=== PATIENT | female | born 1940 | race Caucasian/White ===

== ENCOUNTER 2016-10-25 11:35 | Outpatient (CLI) ==
[2016-07-29 11:02] VITALS: BMI 24.2
[2016-10-25 12:06] LABS: BASOPHILS % (AUTO) 0.5 % (0.0-3.0); EOSINOPHILS # (AUTO) 0.2 K/ul (0.0-0.7); HEMATOCRIT 45.7 % (37.0-47.0); HEMOGLOBIN 15.1 g/dl (12.0-16.0); IMMATURE GRANULOCYTE % (AUTO) 0.2 % (0.0-5.0); LYMPHOCYTES # (AUTO) 2.3 K/uL (0.60-3.4); LYMPHOCYTES % (AUTO) 37.7 (10.0-50.0); MEAN CORPUSCULAR HEMOGLOBIN 31.2 pg (27.0-31.0); MEAN CORPUSCULAR VOLUME 94.4 fl (81.0-99.0); MONOCYTES # (AUTO) 0.4 K/uL (0.4-2.0); MONOCYTES % (AUTO) 6.4 (0-10); NEUTROPHILS # (AUTO) 3.1 K/ul (2.0-6.9); NEUTROPHILS % (AUTO) 51.2; PLATELET COUNT 160 10^3/uL (140-440); RED BLOOD COUNT 4.84 10^6/ul (4.20-5.40); WHITE BLOOD COUNT 6.07 K/ul (4.6-10.2)
[2016-10-25 12:50] LABS: ALBUMIN 3.8 g/dL (3.4-5.0); ALBUMIN/GLOBULIN RATIO 1.15; ANION GAP 14.2; BILIRUBIN,TOTAL 0.61 mg/dL (0.00-1.20); BUN/CREATININE RATIO 10.98; CALCIUM 9.6 mg/dL (8.2-10.2); CHOL/HDL RATIO 5.2 (4.5-5.5); CREATININE 0.91 mg/dL (0.60-1.30); POTASSIUM 4.2 mmol/L (3.5-5.10); TOTAL PROTEIN 7.1 g/dL (5.8-8.1)
== END 2016-10-25 11:36 | disposition home or self-care (01) ==
LOC: LAB 11:35
PROVIDERS: ATTEND Internal Medicine
DX: I10 Essential (primary) hypertension (principal); E78.5 Hyperlipidemia, unspecified; J44.9 Chronic obstructive pulmonary disease, unspecified; E53.8 Deficiency of other specified B group vitamins; I25.10 Atherosclerotic heart disease of native coronary artery without angina pectoris
CPT/HCPCS: 36415; 80053; 80061; 84443; 85025

== ENCOUNTER 2016-12-26 16:05 | Outpatient (CLI) ==
[2016-07-29 11:02] VITALS: BMI 24.2
--- NOTE | 2016-12-26 16:28 | DI ---
EXAM: Radiographs, left foot HISTORY: Left foot pain. COMPARISON: 08/23/2010. TECHNIQUE: Three views. FINDINGS: Bone mineralization is decreased. Bone island noted in the first distal phalanx. There is no fracture or dislocation. Osteoarthritic changes of the calcaneocuboid joint noted. Previousl y noted. Possible navicular fracture not seen currently. No focal soft tissue abnormality is seen. IMPRESSION: 1. No fracture or dislocation. 2. Calcaneocuboid osteoarthritis.
== END 2016-12-26 16:06 | disposition home or self-care (01) ==
LOC: RAD 16:05
PROVIDERS: ATTEND Internal Medicine
DX: M79.672 Pain in left foot (principal)

== ENCOUNTER 2017-06-20 11:25 | Emergency (ER) | payer OTHER ==
[2017-06-20 11:25] VITALS: BMI 24.2
[2017-06-20 11:35] VITALS: BP 133/64; TEMP 97.2
--- NOTE | 2017-06-20 12:53 | DI ---
EXAM: Three views of the left ankle. History: Left ankle trauma. Findings: No acute fracture or dislocation. No abnormal calcifications or radiopaque foreign bodies . Joint spaces are preserved. Benign appearing osseous lucency within the distal fibula. Impression: No acute osseous abnormality.
--- NOTE | 2017-06-20 12:59 | DI ---
EXAM: LEFT FOOT, 3 VIEWS HISTORY: Foot trauma, pain FINDINGS: Compared to 12/26/2016. No fracture or dislocation is identified. Region of interest was not conveyed. No joint effusion or soft tissue finding. IMPRESSION: No fracture or dislocation identified.
--- NOTE | 2017-06-20 13:11 | US ---
EXAM: Left lower extremity venous doppler. HISTORY: Left leg pain and swelling. COMPARISON: 07/29/2016. TECHNIQUE: Multiple grayscale and color doppler images were obtained. FINDINGS: There is normal flow, compressibility and augmentation of flow within the left common femo ral, greater saphenous, profunda, femoral, popliteal, posterior tibial, anterior tibial and peroneal veins. IMPRESSION: No evidence for left lower extremity deep vein thrombosis at the levels examined.
--- NOTE | 2017-06-20 13:13 | ED.PDOC ---
General ED Provider: Dr. MATTIE RECIO Chief Complaint: Foot Pain/Injury Stated Complaint: foot pain left Time Seen by Physician: 11:29 Information Source: Patient Exam Limitations: No limitations Primary Care Provider: BETSY ESPINO Nursing and Triage Documentation Reviewed and Agree: Yes Musculoskeletal Complaint Exam - Ankle/Foot Complaint/Exam Location of Injury: Reports: Left, Ankle, Foot Mechanism of Injury: Reports: Trauma Onset/Duration: 9 days ago had a fall denied other injury Symptoms Are: Reports: Still present Onset of Pain: Reports: Days Initial Severity: Moderate Current Severity: Moderate Location: Reports: Discrete Character: Reports: Aching Alleviating: Reports: Rest, Position Aggravating: Reports: Movement, Weight bearing, Prolonged standing Able to Bear Weight: Yes Associated Signs and Symptoms: Reports: Swelling, Redness, Bruising. Denies: Fever, Weakness, Numbness, Tingling Gout Risk Factors: Reports: >40 years old Related Surgical History: Reports: None Lower Extremity Findings: Present: Tenderness Tenderness: Present: Lateral malleolus Limited Range of Motion: Present: Inversion, Eversion Differential Diagnosis: Closed Fracture, Sprain, Strain Review of Systems - Review Of Systems Constitutional: Reports: No symptoms Eyes: Reports: No symptoms Ears, Nose, Mouth, Throat: Reports: No symptoms Respiratory: Reports: No symptoms Cardiac: Reports: No symptoms GI: Reports: No symptoms : Reports: No symptoms Musculoskeletal: Reports: Joint pain (ankle lillie left) Skin: Reports: No symptoms Neurological: Reports: No symptoms Endocrine: Reports: No symptoms Hematologic/Lymphatic: Reports: No symptoms All Other Systems: Reviewed and Negative Past Medical History - Past Medical History Previously Healthy: No Endocrine: Reports: None Cardiovascular: Reports: Hypertension Respiratory: Reports: None Hematological: Reports: None Gastrointestinal: Reports: None Genitourinary: Reports: None Neuro/Psych: Reports: None Musculoskeletal: Reports: None Cancer: Reports: None Last Menstrual Period: unknown - Surgical History General Surgical History: Reports: Unknown - Family History Family History: Reports: Unknown - Social History Smoking Status: Never smoker Hx Substance Use: No Alcohol Screening: None Physical Exam - Physical Exam Appearance: Well-appearing, No pain distress, Well-nourished Eyes: TOMAS, EOMI, Conjunctiva clear ENT: Ears normal, Nose normal, Oropharynx normal Respiratory: Airway patent, Breath sounds clear, Breath sounds equal, Respirations nonlabored Cardiovascular: RRR, Pulses normal, No rub, No murmur GI/: Soft, Nontender, No masses, Bowel sounds normal, No Organomegaly Musculoskeletal: Limited ROM (left ankle and foot , also the foot is brused calf tender on palpation the achilles tendon tender ) Skin: Warm, Dry, Normal color Neurological: Sensation intact, Motor intact, Reflexes intact, Cranial nerves intact, Alert, Oriented Psychiatric: Affect appropriate, Mood appropriate Interpretation - Radiology Interpretation Radiology Interpretation By: Radiologist Radiology Results: No acute changes Critical Care Note - Critical Care Note Total Time (mins): 0 Course - Course Orders, Labs, Meds: Orders Category Date Time Status ANKLE, LEFT MIN 3 VIEWS Stat RADS 06/20/17 11:54 Completed FOOT, LEFT 3 VIEWS Stat RADS 06/20/17 11:54 Completed U/S VENOUS SCAN LT. LEG Stat RADS 06/20/17 11:55 Ordered Vital Signs: Temp Pulse Resp BP Pulse Ox 06/20/17 11:26 97.2 F L 54 L 20 133/64 96 Departure - Departure Time of Disposition: 13:14 (ACHILLES TENDONE INJURY DISCUSSED HAS WALKER AT HOME MRI DISCUSSED MÓNICA SHULTZ AT BEDSIDE ) Disposition: HOME SELF-CARE Discharge Problem: Strain of left ankle and foot Qualifiers: Encounter type: initial encounter Qualified Code(s): S96.912A - Strain of unspecified muscle and tendon at ankle and foot level, left foot, initial encounter Instructions: Achilles Tendon Rupture (ED) Condition: Good Pt referred to PMD for follow-up: Yes Additional Instructions: Please call your Family Physician as soon as possible to schedule a follow-up appointment.you need an MRI WE DISCUSSED PLEASE SEE PMD Allergies/Adverse Reactions: Allergies prochlorperazine [From Compazine] Allergy (Verified 06/20/17 11:33) prochlorperazine edisylate [From Compazine] Allergy (Verified 06/20/17 11:33) prochlorperazine maleate [From Compazine] Allergy (Verified 06/20/17 11:33) Sulfa (Sulfonamide Antibiotics) Allergy (Verified 06/20/17 11:33) Home Medications: Ambulatory Orders Citalopram Hydrobromide [Celexa] 40 mg PO DAILY 04/25/16 Ezetimibe [Zetia] 10 mg PO DAILY 07/21/16 Lisinopril/Hydrochlorothiazide [Lisinopril-Hctz 10-12.5 Mg Tab] 1 each PO DAILY 04/25/16 Metoprolol Succinate [Toprol Xl] 50 mg PO DAILY 04/25/16 Diazepam [Valium] 5 mg PO BEDTIME 07/29/16 Acetaminophen with Codeine [Tylenol with Codeine #4 Tablet] 1 each PO BID PRN Disposition Discussed With: Patient
== END 2017-06-20 13:26 | disposition home or self-care (01) ==
LOC: ED 11:25
DX: S96.912A Strain of unspecified muscle and tendon at ankle and foot level, left foot, initial encounter (principal); M79.672 Pain in left foot; W19.XXXA Unspecified fall, initial encounter
CPT/HCPCS: 99282

== ENCOUNTER 2017-06-24 13:45 | Outpatient (CLI) | payer OTHER ==
--- NOTE | 2017-06-25 08:23 | MRI ---
EXAM: MRI of the left ankle/hind-foot without contrast COMPARISON: Left foot and ankle radiographs 06/20/2017. HISTORY: Left ankle pain, swelling bruising. Twisting injury 2 weeks ago. TECHNIQUE: Multiplanar noncontrast MR images of the left ankle/hind-foot were acquired using a 1.2 T esla magnet. FINDINGS: There is marrow edema throughout the distal tibia extending throughout the tibial plafond and most pronounced at the level the posterior malleolus. There is a vertically oriented nondisplace d fracture involving the posterior malleolus as seen on image 11 of the sagittal images abutting the subchondral plate without articular surface depression. Edema throughout the overlying soft tissues and adjacent portion of Kager's fat pad. Marrow edema extends into the medial malleolus without a def inite fracture at that site. Marrow edema within the anterior portion of the lateral malleolus extend ing along the attachment the anterior tibiofibular ligament with suspected flake avulsion fracture at that site. Marrow edema within the talus extending into the lateral process and along the margin of the subtalar joint sinus tarsi. There is a chronic-appearing fracture with secondary degenerative c hanges through the anterior process of the calcaneus with a 1.4 x 1.0 cm fracture fragment with secon odalys degenerative changes. Marrow edema throughout the proximal cuboid with question hairline acute fracture dorsally and extending along the margin of the articular surface of the calcaneocuboid artic ulation. Marked secondary degenerative changes at the calcaneocuboid articulation. There is marrow e dillan within the base of the first metatarsal laterally without a definite fracture. Partially imaged marrow edema within the second metatarsal shaft which may be related to stress reaction/evolving str ess fracture. Sprain of the Lisfranc ligament though intact ligament fibers are identified. The yair ar dome is intact. Tibiotalar and posterior subtalar joint effusions. Chronic deformity/spurring of the fifth metatarsal base along the attachment the peroneus brevis which may represent sequela of an old avulsion injury or enthesopathy. Minimal Achilles tendinosis peritendinitis without a tendon tear. 1 mm plantar calcaneal spur. Ther e is some edema throughout the subcutaneous tissues overlying the proximal portion the plantar fascia without fascial rupture. The anterior tibial, extensor hallicus longus and extensor digitorum tendons are intact. Posterior t ibial tendinosis with thinning flattening of the tendon from the medial malleolus through the navicul ar tuberosity related to a a partial tear with possible split component. Some residual intact fibers are identified without a complete/high-grade tear at this time. Flexor digitorum flexor hallicus lo ngus tendons are intact. Peroneus longus/brevis tendinosis with partial/split tear of the peroneus b alexandra from the lateral malleolus through the peroneal tubercle. There is a tear with scarring of the anterior tibiofibular ligament with suspected a avulsion fractur e at the fibular attachment. No abnormal widening of the syndesmosis. Intact posterior tibiofibular ligament fibers are identified. There is a low grade sprain that ligament. Sprain/partial tear inv olving the anterior talofibular and calcaneofibular ligaments as well as sprains with scarring of the posterior talofibular and deltoid ligaments. IMPRESSION: 1. Acute nondisplaced fracture of the posterior malleolus of the distal tibia as well as a small avu lsion fracture of the lateral malleolus. Chronic-appearing fracture with secondary degenerative villeda ge involving the anterior process of the calcaneus. Marrow contusion involving the talus, cuboid, di stal calcaneus and first metatarsal base with question of a small hairline nondisplaced fracture invo lving the proximal cuboid. Stress reaction versus evolving stress fracture involving the second meta tarsal shaft. Chronic deformity/spurring of the base of the fifth metatarsal. 2. Degenerative changes most severe at the calcaneocuboid articulation. Small joint effusions. 3. Subcutaneous edema. 4. Tendinosis and extensive partial tear of the posterior tibial tendon with some intact fibers iden tified. Posterior tibial tenosynovitis. 5. Peroneus longus/brevis tendinosis with partial/split tear of the peroneus brevis. 6. Tear of the anterior tibiofibular ligament with flake avulsion fracture of the fibular attachment . No abnormal widening of the syndesmosis. Sprain/partial tear of the anterior talofibular and calc aneofibular ligaments as well as sprains of the posterior talofibular and deltoid ligaments. 7. Sprain of the Lisfranc ligament with intact fibers identified.
== END 2017-06-24 13:46 | disposition home or self-care (01) ==
LOC: RAD 13:45
PROVIDERS: ATTEND Internal Medicine
DX: M25.572 Pain in left ankle and joints of left foot (principal)

== ENCOUNTER 2017-11-17 09:05 | Emergency (ER) | payer OTHER ==
[2017-11-17 09:06] VITALS: BMI 24.2
[2017-11-17 09:09] VITALS: BP 194/94; TEMP 97.4
--- NOTE | 2017-11-17 09:59 | DI ---
EXAM: CHEST FRONTAL AND LATERAL VIEWS HISTORY: Cough. COMPARISON: 03/16/2014 FINDINGS: Heart size is prominent. Sternotomy wires are noted. There is at least mild aortic ather osclerosis. No acute infiltrates are seen. No vascular congestion. There is no consolidation, visib le pleural fluid or pneumothorax. Bones reveal no acute fracture. IMPRESSION: No acute cardiopulmonary process.
--- NOTE | 2017-11-17 10:00 | CT ---
Exam: CT of the brain without intravenous contrast. Comparison: MRI of the brain performed 04/06/2013. Reason for exam: Dizzy FINDINGS: No acute intracranial hemorrhage, mass effect, ventricular dilatation, or territorial infa rction. The quadrigeminal and ambient cisterns are patent. There is no extraaxial fluid collection. The paranasal sinuses are unopacified without air-fluid levels. The calvarium appears intact. Impression: No acute intracranial findings. Report faxed at [id number] hours on 11/17/2017.
--- NOTE | 2017-11-17 10:36 | ED.PDOC ---
General ED Provider: Dr. MATTIE RECIO Chief Complaint: Nausea/Vomiting Stated Complaint: nausea, vomiting Time Seen by Physician: 09:00 (seen with nursing staff and ) Mode of Arrival: Wheelchair Information Source: Patient Exam Limitations: No limitations Primary Care Provider: BETSY ESPINO Nursing and Triage Documentation Reviewed and Agree: Yes (no motor sensory issues ) Reviewed sepsis parameters & appropriate labs ordered?: Yes (no focal signs) System Inflammatory Response Syndrome: Not Applicable Sepsis Protocol: For patient's 13 years and over: Temp is 96.8 and below OR 101 and greater Pulse >90 BPM Resp >20/minute Acutely Altered Mental Status Are patient's symptoms suggestive of a new infection, such as: -Pneumonia -Skin, Soft Tissue -Endocarditis -UTI -Bone, Joint Infection -Implantable Device -Acute Abdominal Infection -Wound Infection -Meningitis -Blood Stream Catheter Infection -Unknown System Inflammatory Response Syndrome: Not Applicable Neurological Complaint Exam - Dizziness Complaint/Exam Last Known Well: the morning presentation Onset: Gradual Duration: 1 hr Symptoms Are: Still present Timing: Intermittent Episodes Lasting: Minutes Initial Severity: Mild Current Severity: Mild Character: Reports: Lightheaded, Dizzy Aggravating: Reports: None Alleviating: Reports: None Associated Signs and Symptoms: Reports: Nausea, Vomiting (x1). Denies: Diaphoresis, Tinnitus, Chest pain, Short of air, Palpitations, Unsteady gait, GI blood loss, Visual changes, Decreased oral intake, Change in medication, Change in diet, OTC meds, Loss of balance Cardiac Risk Factors: Reports: Hypertension CVA Risk Factors: Reports: Hypertension Related Surgical History: Reports: None JVD Present: No Carotid Bruit Present: No Rectal Heme Positive: No Glascow Coma Scale (see protocol): 15 Nystagmus Present: No Gag Reflex Present: Yes Meningeal Signs Positive: No Focal Weakness: Present: None Focal Sensory Loss: Present: None Gait: Normal Differential Diagnoses: Hypovolemia, Metabolic abnormalities Quality Indicators for AMI: EKG in 10min. Quality Indicator For Non-Traumatic Chest Pain/Syncope: EKG Performed Review of Systems - Review Of Systems Constitutional: Reports: No symptoms Eyes: Reports: No symptoms Ears, Nose, Mouth, Throat: Reports: No symptoms Respiratory: Reports: No symptoms Cardiac: Reports: No symptoms GI: Reports: Nausea, Vomiting : Reports: No symptoms Musculoskeletal: Reports: No symptoms Skin: Reports: No symptoms Neurological: Reports: No symptoms Endocrine: Reports: No symptoms Hematologic/Lymphatic: Reports: No symptoms All Other Systems: Reviewed and Negative Past Medical History - Past Medical History Previously Healthy: No Endocrine: Reports: None Cardiovascular: Reports: Hypertension Respiratory: Reports: None Hematological: Reports: None Gastrointestinal: Reports: None Genitourinary: Reports: None Neuro/Psych: Reports: None Musculoskeletal: Reports: None Cancer: Reports: None Last Menstrual Period: n/a - Surgical History General Surgical History: Reports: Unknown - Family History Family History: Reports: Unknown - Social History Smoking Status: Never smoker Hx Substance Use: No Alcohol Screening: None Physical Exam - Physical Exam Appearance: Well-appearing, No pain distress, Well-nourished Eyes: TOMAS, EOMI, Conjunctiva clear ENT: Ears normal, Nose normal, Oropharynx normal Respiratory: Airway patent, Breath sounds clear, Breath sounds equal, Respirations nonlabored Cardiovascular: RRR, Pulses normal, No rub, No murmur GI/: Soft, Nontender, No masses, Bowel sounds normal, No Organomegaly Musculoskeletal: Normal strength, ROM intact, No edema, No calf tenderness Skin: Warm, Dry, Normal color Neurological: Sensation intact, Motor intact, Reflexes intact, Cranial nerves intact, Alert, Oriented Psychiatric: Affect appropriate, Mood appropriate Interpretation - Radiology Interpretation Radiology Interpretation By: Radiologist Radiology Results: No acute changes Exam Interpreted: CT Scan - Contract [employer] Specialist Rate: Malcolm Rhythm: Sinus - EKG Interpretation Rate: Malcolm Rhythm: Sinus Critical Care Note - Critical Care Note Total Time (mins): 0 Course - Course Hematology/Chemistry: 11/17/17 09:20 11/17/17 09:20 Orders, Labs, Meds: Lab Review 11/17/17 11/17/17 09:20 09:20 WBC 6.43 RBC 4.74 Hgb 14.9 Hct 43.0 MCV 90.7 MCH 31.4 H MCHC 34.7 RDW Coeff of Tori 12.3 Plt Count 168 Immature Gran % (Auto) 0.3 Neut % (Auto) 44.7 Lymph % (Auto) 44.3 Holt % (Auto) 7.0 Eos % (Auto) 3.1 Baso % (Auto) 0.6 Immature Gran # (Auto) 0.0 Neut # 2.9 Lymph # 2.9 Holt # 0.5 Eos # 0.2 Baso # 0.0 Sodium 137 Potassium 4.3 Chloride 101 Carbon Dioxide 27 Anion Gap 13.3 BUN 16 Creatinine 0.79 Estimated GFR (MDRD) 71.00 BUN/Creatinine Ratio 20.25 Glucose 103 Calcium 9.5 Total Bilirubin 0.7 AST 22 ALT 19 Alkaline Phosphatase 69 Total Creatine Kinase 54 Troponin I < 0.0100 Total Protein 6.9 Albumin 3.8 Globulin 3.1 Albumin/Globulin Ratio 1.23 Orders Category Date Time Status EKG-(ED ONLY) Stat CARDIO 11/17/17 09:17 Completed CBC W/ AUTO DIFF Stat LAB 11/17/17 09:20 Completed COMPREHENSIVE METABOLIC PANEL Stat LAB 11/17/17 09:20 Completed CREATINE KINASE Stat LAB 11/17/17 09:20 Completed TROPONIN I Stat LAB 11/17/17 09:20 Completed CHEST, 2 VIEWS PA & LAT Stat RADS 11/17/17 09:[address] HEAD W/O CONTRAST Stat RADS 11/17/17 09:18 Completed Vital Signs: Temp Pulse Resp BP Pulse Ox 11/17/17 09:06 97.4 F L 57 L 16 194/94 H 98 Departure - Departure Time of Disposition: 10:38 Disposition: HOME SELF-CARE Discharge Problem: Nausea, Vomiting, Weakness, Dizziness Instructions: Vertigo (ED), Dizziness (ED) Condition: Good Pt referred to PMD for follow-up: Yes IPMP verified?: No Additional Instructions: Please call your Family Physician as soon as possible to schedule a follow-up appointment. Allergies/Adverse Reactions: Allergies prochlorperazine [From Compazine] Allergy (Verified 11/17/17 09:09) prochlorperazine edisylate [From Compazine] Allergy (Verified 11/17/17 09:09) prochlorperazine maleate [From Compazine] Allergy (Verified 11/17/17 09:09) Sulfa (Sulfonamide Antibiotics) Allergy (Verified 11/17/17 09:09) Home Medications: Ambulatory Orders Citalopram Hydrobromide [Celexa] 40 mg PO DAILY 04/25/16 Ezetimibe [Zetia] 10 mg PO DAILY 04/25/16 Lisinopril/Hydrochlorothiazide [Lisinopril-Hctz 10-12.5 Mg Tab] 1 each PO DAILY 04/25/16 Metoprolol Succinate [Toprol Xl] 50 mg PO DAILY 04/25/16 Diazepam [Valium] 5 mg PO BEDTIME PRN 07/29/16 Acetaminophen with Codeine [Tylenol with Codeine #4 Tablet] 1 each PO BID PRN Nitroglycerin [Nitrostat] 0.4 mg SL Q5MIN X 3 DOSES PRN 11/17/17 Ondansetron HCl [Zofran] 4 mg PO PRN PRN 11/17/17
== END 2017-11-17 11:05 | disposition home or self-care (01) ==
LOC: ED 09:05
DX: R11.2 Nausea with vomiting, unspecified (principal); R53.1 Weakness; R42 Dizziness and giddiness; I10 Essential (primary) hypertension; Z79.899 Other long term (current) drug therapy
CPT/HCPCS: 36415; 80053; 82550; 84484; 85025; 93005; 93010; 99283

== ENCOUNTER 2018-03-11 06:43 | Outpatient (CLI) | payer OTHER ==
--- NOTE | 2018-03-11 10:01 | NM ---
EXAM: Myocardial perfusion imaging HISTORY: Chest pain COMPARISON: Myocardial perfusion imaging on 11/16/2012 was normal. TECHNIQUE: Patient was injected 3.76 mCi of thallium 201 chloride intravenously while at rest. SPECT imaging of the heart was acquired. Patient was subsequently stressed on a treadmill and at peak exe rcise injected 24.9 mCi of Tc99m Sestamibi intravenously. Another SPECT imaging of the heart was [facility]. Gated cardiac study was also performed. FINDINGS: Post stress images show normal left ventricular cavity size. Radioisotope distribution is homogeneous in the left ventricle myocardium. There is no evidence of exercise induced reversible is chemia. No fixed defect is visualized. The left ventricular ejection fraction is 80% and wall motio n is normal. IMPRESSION: 1. SPECT myocardial imaging at stress and rest is normal. 2. Normal cardiac systolic function and normal wall motion.
--- NOTE | 2018-03-12 09:58 | ECHO2D ---
Date of Exam: 03/11/18 Ordering Physician: DR. BETSY ESPINO Room #: OP Reason for Echo: CHEST PAIN, COPD, DYSLIPIDEMIA, CABG M-Mode Normal Adult Results LV Dimensions Normal Adult Results AoV Opening excursions >1.6 >1.6 LVEDD-base- 3.5-5.8 4.0 Ao root dimensions 2.0-3.7 3.1 LVESD-base- 3.1-4.6 L. Atrium dimensions 1.9-3.8 4.1 Post. Wall thickness 0.8-1.1 1.2 IV septum (thickness) 0.7-1.2 1.2 Post. Wall excursion 0.72-1.3 NORMAL Septal motion 0.5 Systolic motion R. Ventricular cavity 1.5-2.0 NORMAL LVEF 60% 51% Paradoxical septal wall motion NORMAL 2-D : MILDLY HYPOKINETIC SEPTUM--ENLARGED LEFT ATRIAL CAVITY, NORMAL VALVES, NORMAL LEFT VENTRICLE SIZE COLOR FLOW: SEVERE TRICUSPID REGURGITATION, MILD MITRAL REGURGITATION M-MODE: MV: NORMAL AV: NORMAL TV: NORMAL PV: CHAMBER SIZE: ENLARGED LEFT ATRIAL CAVITY WALL MOTION: HYPOKINETIC SEPTUM PERICARDIUM: NORMAL INTERPRETATION: 1. BORDERLINE LEFT VENTRICULAR HYPERTROPHY WITH ENLARGED LEFT ATRIAL CAVITY 2. HYPOKINETIC SEPTUM WITH EJECTION FRACTION 51% 3. SEVERE TRICUSPID REGURGITATION MTDD
--- NOTE | 2018-03-12 10:12 | STRESSMOD ---
Date of Test: 03/11/18 Ordering Physician: DR. BETSY ESPINO Occupation: RETIRED Reason for Exam: CHEST PAIN, COPD, DYSLIPIDEMIA, CABG 2013 Smoking History: NO Height: 66" Weight: 157 LBS Current Medications: TOPROL, LISINOPRIL-HCTZ, CELEXA, NITRO, VALIUM, ZETIA, AMLODIPINE, ANTIVERT Resting EKG: SINUS RHYTHM/ INCOMPLETE RIGHT BUNDLE BRANCH BLOCK Target Heart Rate: 123/145 S-T SEGMENT STAGE MPH/GRADE HEART RATE BPM BLOOD PRESSURE mmhg RHYTHM +/- ELEVATION DEPRESSION SYMPTOMS,COMMENTS At Rest 60 140/78 SR X NONE 1 1.7/0% 71 140/60 SR X NONE 2 1.7/5% 82 160/80 SR X NONE 3 1.7/10% 4 2.5/12% 5 3.4/14% Immediately After 92 180/80 SR X FATIGUE Minutes Post Exercise 4:00 62 140/80 SR X FATIGUE Minutes Post Exercise DURATION OF EXERCISE: 7:00 MAXIMUM HEART RATE REACHED: 92 REASON FOR TERMINATION: FATIGUE 98% OXYGEN SATURATION WITH EXERCISE ON ROOM AIR METS 4.6 INTERPRETATION: 1. NO EVIDENCE OF ISCHEMIA BY ST-T WAVE FROM HEART RATE 60 BPM TO 92 BPM 2. NO ARRHYTHMIAS 3. BLOOD PRESSURE RESPONSE: SYSTOLIC HYPERTENSION WITH EXERCISE (MILD) 4. NO CHEST PAIN OR DISCOMFORT HYPOKINETIC SEPTUM AT REST AND WITH IMPROVED MOTION POST EXERCISE --CARDIOLITE TO FOLLOW MTDD
--- NOTE | 2018-03-12 10:14 | ECHOSTRESS ---
Date of Exam: 03/11/18 Ordering Physician: DR. BETSY ESPINO Reason for Echo: COPD, CABG, DYSLIPIDEMIA, STRESS TEST--NO ISCHEMIA M-Mode Normal Adult Results LV Dimensions Normal Adult Results AoV Opening excursions >1.6 LVEDD-base- 3.5-5.8 Ao root dimensions 2.0-3.7 LVESD-base- 3.1-4.6 L. Atrium dimensions 1.9-3.8 Post. Wall thickness 0.8-1.1 IV septum (thickness) 0.7-1.2 Post. Wall excursion 0.72-1.3 Septal motion Systolic motion R. Ventricular cavity 1.5-2.0 LVEF 60% Paradoxical septal wall motion 2-D: HYPOKINETIC SEPTUM AT REST WITH IMPROVED SEPTAL MOTION POST EXERCISE M-MODE: MV: AV: TV: PV: CHAMBER SIZE: WALL MOTION: HYPOKINETIC SEPTUM AT REST WITH IMPROVED SEPTAL MOTION POST EXERCISE PERICARDIUM: INTERPRETATION: 1. HYPOKINETIC SEPTUM AT REST WITH IMPROVED SEPTAL MOTION POST EXERCISE SESTAMIBI/ CARDIOLITE TO FOLLOW MTDD
== END 2018-03-11 06:44 | disposition home or self-care (01) ==
LOC: CAR 06:43
PROVIDERS: ATTEND Internal Medicine
DX: R07.9 Chest pain, unspecified (principal); E78.5 Hyperlipidemia, unspecified; J44.9 Chronic obstructive pulmonary disease, unspecified; Z95.1 Presence of aortocoronary bypass graft

== ENCOUNTER 2019-01-23 11:13 | Emergency (ER) ==
[2019-01-23 11:18] VITALS: BMI 23.9
[2019-01-23] MEDS ORDERED: SODIUM CHLORIDE 1,000 ML IV STA (11:33)
--- NOTE | 2019-01-23 12:05 | CT ---
EXAM: CT Abdomen without contrast. CT Pelvis without contrast. HISTORY: Bloody stool. Rectal pain. COMPARISON: 03/22/2016. TECHNIQUE: Multiple axial images of the abdomen and pelvis were obtained without intravenous contras t. Images were reformatted in the sagittal and coronal plane. FINDINGS: Please note that evaluation of the abdominal and pelvic structures is limited due to lack of intravenous contrast. Bilateral breast implants are partially imaged. There has been previous sternotomy. The lung bases are clear. Degenerative changes present in the spine.. The liver, gallbladder, pancreas, spleen, adrenal glands, and right kidney demonstrate normal contour . Subtle partially exophytic lateral left renal cortical lesion measuring 1.2 x 1 x 1 cm on axial im age 50 and coronal image 62 with internal density of 30 HU, grossly stable in size from prior abdomin al CT. There is moderate wall thickening of the descending colon with adjacent pericolonic inflammation. Th ere is no pneumatosis. There is no evidence for bowel obstruction. The appendix is normal. Uterus is absent. Bladder is collapsed. Phleboliths present in the pelvis. Atherosclerotic calcifications present. No free fluid or free air is identified. IMPRESSION: 1. Descending colitis most likely due to infectious process or inflammatory bowel disease. 2. Stable small left renal cortical lesion, since 2017, indeterminate based on CT. Follow-up non-em ergent ultrasound recommended for further characterization.
[2019-01-23] MEDS ORDERED: UNASYN 3 GM in SODIUM CHLORIDE 100 ML IV STA (12:46)
[2019-01-23] MEDS ORDERED: SOLU-MEDROL 125 MG IVP STA (12:46)
[2019-01-23 12:59] VITALS: TEMP 98.5
--- NOTE | 2019-01-23 13:00 | ED.PDOC ---
General ED Provider: Dr. MATTIE RECIO Chief Complaint: Rectal Pain Stated Complaint: Rectal Bleeding ONSET 1 DAY AGO. RADHA BLOOD NOTED BY THE PT YESTERDAY BUT, SHE HAS NOT HAD ANY FURTHER RECTAL BLEEDING IN THE EMERGENCY DEPT OR SINCE YESTERDAY. PT'S MAIN ISSUE TODAY IS ABDOMINAL CRAMPING PAIN AND RECTAL BLEED 1 DAY PRIOR. Time Seen by Physician: 11:17 (ángel present at all times ) Mode of Arrival: Walk-In Information Source: Patient Exam Limitations: No limitations Primary Care Provider: BETSY ESPINO Nursing and Triage Documentation Reviewed and Agree: Yes Does patient meet sepsis criteria?: No System Inflammatory Response Syndrome: Not Applicable Sepsis Protocol: For patient's 13 years and over: Temp is 96.8 and below OR 101 and greater Pulse >90 BPM Resp >20/minute Acutely Altered Mental Status Are patient's symptoms suggestive of a new infection, such as: -Pneumonia -Skin, Soft Tissue -Endocarditis -UTI -Bone, Joint Infection -Implantable Device -Acute Abdominal Infection -Wound Infection -Meningitis -Blood Stream Catheter Infection -Unknown GI Complaint Exam - GI Bleed Complaint/Exam Patient Complains of: Reports: Rectal bleeding Onset/Duration: 1 day ago Symptoms Are: Resolved Episodes Lasting: Minutes Severity: Reports: Bright red blood-rectum Character: Reports: Cramping Aggravating: Reports: None Alleviating: Reports: None Associated Signs and Symptoms: Denies: Back Pain, Pallor, Dizziness, Weakness, Syncope, Constipation, Nausea, Rectal pain, Bruising, Weight loss, Recent abnormal coags GI Bleed Risk Factors: Reports: None Recent Colonoscopy: No Recent EGD: No Related Surgical History: Reports: None Abdominal Findings: Present: None Rectal Exam: Present: Other (gross blood present ángel) Differential Diagnoses: Diverticulitis, Enterocolitis, Hemorrhoids, Ischemic Bowel, Ulcerative Colitis, Crohn's Disease Review of Systems - Review Of Systems Constitutional: Reports: No symptoms Eyes: Reports: No symptoms Ears, Nose, Mouth, Throat: Reports: No symptoms Respiratory: Reports: No symptoms Cardiac: Reports: No symptoms GI: Reports: Abdominal pain, Rectal bleeding : Reports: No symptoms Musculoskeletal: Reports: No symptoms Skin: Reports: No symptoms Neurological: Reports: No symptoms Endocrine: Reports: No symptoms Hematologic/Lymphatic: Reports: No symptoms All Other Systems: Reviewed and Negative Past Medical History - Past Medical History Previously Healthy: No Endocrine: Reports: None Cardiovascular: Reports: Hypertension Respiratory: Reports: None Hematological: Reports: None Gastrointestinal: Reports: None Genitourinary: Reports: None Neuro/Psych: Reports: None Musculoskeletal: Reports: None Cancer: Reports: None Last Menstrual Period: N/A - Surgical History General Surgical History: Reports: Unknown - Family History Family History: Reports: Unknown - Social History Smoking Status: Never smoker Hx Substance Use: No Alcohol Screening: None - Immunizations Tetanus Shot up to Date: No Physical Exam - Physical Exam Appearance: Well-appearing, No pain distress, Well-nourished Eyes: TOMAS, EOMI, Conjunctiva clear ENT: Ears normal, Nose normal, Oropharynx normal Respiratory: Airway patent, Breath sounds clear, Breath sounds equal, Respirations nonlabored Cardiovascular: RRR, Pulses normal, No rub, No murmur GI/: Soft, Nontender, No masses, Bowel sounds normal, No Organomegaly Musculoskeletal: Normal strength, ROM intact, No edema, No calf tenderness Skin: Warm, Dry, Normal color Neurological: Sensation intact, Motor intact, Reflexes intact, Cranial nerves intact, Alert, Oriented Psychiatric: Affect appropriate, Mood appropriate Interpretation - Radiology Interpretation Radiology Interpretation By: Radiologist Radiology Results: Positive (COLITIS .VS INFECTIUS) - Hairspring Vibrator Rate: Malcolm Rhythm: Sinus - EKG Interpretation Rate: Malcolm Rhythm: Sinus Ectopy: None [place]: NL (T INVSERION V2,V3 ) Physician Notification - Case Discussed Physician Notified: SHOLA CHRISTIAN Time of Notification: 13:35 (TRANSFER ) Critical Care Note - Critical Care Note Total Time (mins): 0 Course - Course Hematology/Chemistry: 01/23/19 11:35 01/23/19 11:35 Orders, Labs, Meds: Lab Review 01/23/19 01/23/19 01/23/19 11:35 11:35 11:35 WBC 10.43 H RBC 4.89 Hgb 15.5 Hct 45.0 MCV 92.0 MCH 31.7 H MCHC 34.4 RDW Coeff of Tori 12.0 Plt Count 154 Immature Gran % (Auto) 0.2 Neut % (Auto) 77.9 Lymph % (Auto) 17.4 Wilkinson % (Auto) 4.1 Eos % (Auto) 0.2 Baso % (Auto) 0.2 Immature Gran # (Auto) 0.0 Neut # (Auto) 8.1 H Lymph # (Auto) 1.8 Wilkinson # (Auto) 0.4 Eos # (Auto) 0.0 Baso # (Auto) 0.0 PT 10.5 INR 1.05 APTT 23.5 L Puncture Site O2 Saturation ABG pH ABG pCO2 ABG pO2 ABG HCO3 ABG Total CO2 ABG Base Excess Torres Test FiO2 % Sodium 134.4 L Potassium 3.93 Chloride 100.8 Carbon Dioxide 24.6 Anion Gap 12.93 BUN 16.3 Creatinine 0.81 Estimated GFR (MDRD) 69.00 BUN/Creatinine Ratio 20.12 Glucose 143.0 H Calcium 9.31 Total Bilirubin 0.94 AST 29.5 ALT 23.4 Alkaline Phosphatase 75.7 Total Creatine Kinase 32.7 Troponin I < 0.012 Total Protein 6.97 Albumin 4.60 Globulin 2.37 Albumin/Globulin Ratio 1.94 Stl Occult Blood (IFOB) 01/23/19 01/23/19 11:35 13:01 WBC RBC Hgb Hct MCV MCH MCHC RDW Coeff of Tori Plt Count Immature Gran % (Auto) Neut % (Auto) Lymph % (Auto) Wilkinson % (Auto) Eos % (Auto) Baso % (Auto) Immature Gran # (Auto) Neut # (Auto) Lymph # (Auto) Wilkinson # (Auto) Eos # (Auto) Baso # (Auto) PT INR APTT Puncture Site Rr O2 Saturation 96.0 ABG pH 7.412 ABG pCO2 40.3 ABG pO2 83.0 L ABG HCO3 25.6 ABG Total CO2 27 ABG Base Excess 1 Torres Test + FiO2 % 21.0 Sodium Potassium Chloride Carbon Dioxide Anion Gap BUN Creatinine Estimated GFR (MDRD) BUN/Creatinine Ratio Glucose Calcium Total Bilirubin AST ALT Alkaline Phosphatase Total Creatine Kinase Troponin I Total Protein Albumin Globulin Albumin/Globulin Ratio Stl Occult Blood (IFOB) Positive Orders Category Date Time Status ABG DRAW REQUEST Stat CARDIO 01/23/19 13:02 Completed EKG-(ED ONLY) Stat CARDIO 01/23/19 11:25 Completed EKG-(ED ONLY) Stat CARDIO 01/23/19 13:02 Completed ED IV/MEDIPORT/POWERPORT .ONCE EMERGENCY 01/23/19 11:32 Active ABG Stat LAB 01/23/19 13:01 Completed CBC W/ AUTO DIFF Stat LAB 01/23/19 11:35 Completed COMPREHENSIVE METABOLIC PANEL Stat LAB 01/23/19 11:35 Completed CREATINE KINASE Stat LAB 01/23/19 11:35 Completed OCCULT BLOOD, STOOL Stat LAB 01/23/19 11:35 Completed PARTIAL THROMBOPLASTIN TIME Stat LAB 01/23/19 11:35 Completed PT WITH INR Stat LAB 01/23/19 11:35 Completed TROPONIN I Stat LAB 01/23/19 11:35 Completed 0.9 % Sodium Chloride [Saline Flush] MEDS 01/23/19 11:32 Ordered 1 syr IVF PRN PRN Ampicillin Sodium/Sulbactam Na [Unasyn] MEDS 01/23/19 13:04 Discontinued 3 gm .ROUTE .STK-MED ONE Ampicillin Sodium/Sulbactam Na [Unasyn] 3 gm MEDS 01/23/19 12:46 Active 0.9 % Sodium Chloride [Sodium Chloride] 100 ml IV ONCE Methylprednisolone Sod Succ/Pf [Solu-Medrol 125 mg] MEDS 01/23/19 12:46 Discontinued 125 mg IVP ONCE STA Sodium Chloride 0.9% [Sodium Chloride] 1,000 ml MEDS 01/23/19 11:33 Active IV 125 mls/hr CT ABDOMEN/PELVIS WO CONTRAST Stat RADS 01/23/19 11:25 Completed Medications Generic Name Dose Route Start Last Admin Trade Name Freq PRN Reason Stop Dose Admin Sodium Chloride 1,000 mls @ 125 mls/hr 01/23/19 11:33 01/23/19 11:54 Sodium Chloride IV 01/23/19 19:32 125 mls/hr .Q8H STA Administration Ampicillin Sodium/Sulbactam 100 mls @ 100 mls/hr 01/23/19 12:46 01/23/19 13: 16 Sodium 3 gm/ Sodium Chloride IV 01/23/19 13:45 100 mls/hr ONCE STA Administration Sodium Chloride 1 syr 01/23/19 11:32 Saline Flush IVF PRN PRN To flush IV Discontinued Medications Generic Name Dose Route Start Last Admin Trade Name Freq PRN Reason Stop Dose Admin Methylprednisolone Sodium Succinate 125 mg 01/23/19 12:46 01/23/19 13:15 Solu-Medrol 125 Mg IVP 01/23/19 12:47 125 mg ONCE STA Administration Vital Signs: Temp Pulse Resp BP Pulse Ox 01/23/19 13:10 172/68 H 01/23/19 12:58 98.5 F 56 L 18 179/74 H 97 01/23/19 11:14 99.2 F 62 18 172/83 H 95 Departure - Departure Time of Disposition: 13:35 (SPOKE TO [facility] [place] THE PT NO FURTHER G.I. BLEED PT TRANSFERED ) Disposition: TSF SHORT-TRM HOSP Discharge Problem: Lower GI bleed Instructions: Rectal Bleeding (ED) Condition: Good Pt referred to PMD for follow-up: Yes IPMP verified?: No Additional Instructions: Please call your Family Physician as soon as possible to schedule a follow-up appointment. Allergies/Adverse Reactions: Allergies prochlorperazine [From Compazine] Allergy (Verified 01/23/19 11:17) prochlorperazine edisylate [From Compazine] Allergy (Verified 01/23/19 11:17) prochlorperazine maleate [From Compazine] Allergy (Verified 01/23/19 11:17) Sulfa (Sulfonamide Antibiotics) Allergy (Verified 01/23/19 11:17) Home Medications: Ambulatory Orders Citalopram Hydrobromide [Celexa] 40 mg PO DAILY 04/25/16 Ezetimibe [Zetia] 10 mg PO DAILY 04/25/16 Lisinopril/Hydrochlorothiazide [Lisinopril-Hctz 10-12.5 Mg Tab] 1 each PO DAILY 04/25/16 Metoprolol Succinate [Toprol Xl] 50 mg PO DAILY 04/25/16 Diazepam [Valium] 5 mg PO BEDTIME PRN 07/29/16 Acetaminophen with Codeine [Tylenol with Codeine #4 Tablet] 1 each PO BID PRN Nitroglycerin [Nitrostat] 0.4 mg SL Q5MIN X 3 DOSES PRN 11/17/17 Aspirin [Aspir-Low] 81 mg PO DAILY 01/23/19
[2019-01-23] MEDS ORDERED: UNASYN ONE (13:04)
[2019-01-23 13:10] VITALS: BP 172/68
== END 2019-01-23 13:55 | disposition short-term general hospital (02) ==
LOC: ED 11:13
DX: K92.2 Gastrointestinal hemorrhage, unspecified (principal); I10 Essential (primary) hypertension; Z79.899 Other long term (current) drug therapy
CPT/HCPCS: 36415; 80053; 82272; 82550; 82803; 84484; 85025; 85610; 85730; 93005; 93010; 96361; 96365; 96375; 99285

== ENCOUNTER 2019-01-23 14:04 | Outpatient (CLI) ==
[2019-01-23 11:18] VITALS: BMI 23.9
== END 2019-01-23 14:27 | disposition short-term general hospital (02) ==
LOC: AMBL 14:04
PROVIDERS: ATTEND Internal Medicine
DX: R10.84 Generalized abdominal pain (principal); K92.1 Melena

== ENCOUNTER 2019-03-02 06:52 | Day surgery (SDC) ==
[2019-03-02 07:32] VITALS: TEMP 96.8
[2019-03-02] MEDS ORDERED: LIDOCAINE 1% 20 ML MDV ID STA (07:33)
[2019-03-02] MEDS ORDERED: VERSED ONE (09:20)
[2019-03-02] MEDS ORDERED: DIPRIVAN 20 ML VIAL IVP ONE (09:20)
--- NOTE | 2019-03-03 09:06 | OP ---
INDICATIONS FOR PROCEDURE: 78 year old female presents for colonoscopy exam. She has a report history of polyps. She was hospitalized a few months ago and had acute colitis on CT scan. She is now asymptomatic. She presents for followup colonoscopy. MEDICATIONS: SEE ANESTHESIA NOTES. PROCEDURE: COLONOSCOPY. SNARE POLYPECTOMY. REPORT: The risks, benefits, alternatives and limitations were discussed in detail with the patient. Informed consent was obtained. After adequate sedation was achieved, a digital rectal exam revealed good tone, no masses. The colonoscope was introduced into the rectum and advanced under direct visual guidance to the cecum. The cecum was identified by the appendiceal orifice and IC valve. The very proximal ascending colon there was a flat 12mm polyp and I removed this by piece mill technique. It was removed in three pieces. There was no polyp tissue remaining. I then slowly withdrew the scope in circumferential manner and examined the mucosa quite carefully. I looked on the proximal and distal sides of fold and flexures as best as possible. I was able to retroflex the scope in the right colon and left colon to increase visualization. Scattered throughout the transverse colon was 4 polyps. These range in size from 3mm to 5mm. They were all sessile and all removed by snare technique. On retroflex view of the anal canal there was a small internal hemorrhoid. No other abnormalities were noted including on retroflex views of the right and left colon. The prep was good and the withdraw time was 15 minutes and 58 seconds. The patient tolerated the procedure well with stable vital signs and pulse oximetry throughout. IMPRESSION: 1. 5 polyps removed as above 2. Small internal hemorrhoid RECOMMENDATIONS: 1. High fiber diet 2. Office visit as needed 3. Await polyp pathology and if everything benign I suggest surveillance colonoscopy examination again in three years or sooner if signs or symptoms would indicate otherwise. CC: Dr. Ok COLON
[2019-03-03 10:28] VITALS: BP 152/51
== END 2019-03-02 11:00 | disposition home or self-care (01) ==
LOC: SURG 06:52
PROVIDERS: ATTEND Internal Medicine Gastroenterology
DX: K52.9 Noninfective gastroenteritis and colitis, unspecified (principal); K64.8 Other hemorrhoids; K63.5 Polyp of colon; D12.2 Benign neoplasm of ascending colon; D12.3 Benign neoplasm of transverse colon

== ENCOUNTER 2021-04-26 15:04 | Inpatient (IN) ==
[2021-04-26] MEDS ORDERED: SODIUM CHLORIDE 1,000 ML IV STA ×2 (15:14→16:40)
[2021-04-26] MEDS ORDERED: CATAPRES PO ONE (15:14)
--- NOTE | 2021-04-26 15:18 | ED.PDOC ---
General ED Provider: Dr. LIZ ESPOSITO MD Chief Complaint: Diarrhea Stated Complaint: diarrhea Time Seen by Provider: 04/26/21 15:14 Mode of Arrival: Walk-In Information Source: Patient Primary Care Provider: BETSY ESPINO Nursing and Triage Documentation Reviewed and Agree: Yes Does patient meet sepsis criteria?: No System Inflammatory Response Syndrome: Not Applicable Sepsis Protocol: For patient's 13 years and over: Temp is 96.8 and below OR 101 and greater Pulse >90 BPM Resp >20/minute Acutely Altered Mental Status Are patient's symptoms suggestive of a new infection, such as: -Pneumonia -Skin, Soft Tissue -Endocarditis -UTI -Bone, Joint Infection -Implantable Device -Acute Abdominal Infection -Wound Infection -Meningitis -Blood Stream Catheter Infection -Unknown GI Complaint Exam Vomiting/Diarrhea Complaint/Exam Onset/Duration: mild to mod persistant diarrhea w/o blood for 6 days, no fever Symptoms Are: Still present Initial Severity: Mild Current Severity: Moderate Character of Diarrhea: Reports Watery Review of Systems Review Of Systems Constitutional: Reports Malaise; Denies Fever Eyes: Denies Vision change Ears, Nose, Mouth, Throat: Denies Throat pain Respiratory: Denies Short of air Cardiac: Denies Chest pain GI: Reports Abdominal pain, Diarrhea and Vomiting : Denies Frequency Musculoskeletal: Denies Back pain Skin: Denies Rash and Cyanosis Neurological: Denies Cognitive dysfunction and Headache All Other Systems: Other [facility] Medical History (Updated 04/26/21 @ 16:49 by LIZ ESPOSITO MD) Allergies Arthritis Chronic GERD History of sinus problem Hypertension Laryngitis, chronic Skin cancer Family History Mother Thyroid disease BROTHER Cardiac abnormality Social History Smoking and tobacco status: Never smoker Alcohol intake: never Substance use type: does not use Seatbelt use: always Drives intoxicated or rides with intoxicated pile driver: No Water heater temperature set < 120 degrees: Yes Working smoke detector in home: Yes Fire extinguisher in home: Yes Carbon monoxide detector in home: No Firearms in home: Yes Surgical History (Updated 11/24/19 @ 14:44 by BETO AL) History of heart surgery Physical Exam Physical Exam Appearance: Reports Well-appearing Ill-appearing: Not Applicable Pain Distress: Not Applicable Eyes: Reports TOMAS, EOMI and Conjunctiva clear ENT: Reports Oropharynx normal Neck: Supple Respiratory: Reports Airway patent, Breath sounds clear and Breath sounds equal Cardiovascular: Reports RRR GI/: Reports Soft and Nontender Musculoskeletal: Reports ROM intact and No edema Skin: Reports Warm and Dry Neurological: Reports Alert and Oriented Psychiatric: Reports Affect appropriate Interpretation Radiology Interpretation Radiology Interpretation By: Radiologist Radiology Results: No acute changes Exam Interpreted: CT Scan Critical Care Note Critical Care Note Total Critical Care Time (mins): 0 Course Course Hematology/Chemistry: 04/26/21 15:19 04/26/21 15:19 Orders, Labs, Meds: Lab Review 04/26/21 04/26/21 04/26/21 15:19 15:19 15:19 WBC 6.28 RBC 4.66 Hgb 14.7 Hct 42.2 MCV 90.6 MCH 31.5 H MCHC 34.8 RDW Coeff of Tori 12.5 Plt Count 167 Immature Gran % (Auto) 0.3 Neut % (Auto) 48.9 Lymph % (Auto) 38.7 Tate % (Auto) 8.3 Eos % (Auto) 3.2 Baso % (Auto) 0.6 Neut # (Auto) 3.1 Lymph # (Auto) 2.4 Tate # (Auto) 0.5 Eos # (Auto) 0.2 Baso # (Auto) 0.0 Immature Gran # (Auto) 0.0 Sodium 136.5 Potassium 3.99 Chloride 103.4 Carbon Dioxide 25.7 Anion Gap 11.39 BUN 17.6 H Creatinine 0.70 Estimated GFR (MDRD) 81.00 BUN/Creatinine Ratio 25.14 Glucose 87.3 Lactic Acid 0.90 Calcium 9.11 Total Bilirubin 0.60 AST 28.2 ALT 18.8 Alkaline Phosphatase 65.9 Total Protein 6.96 Albumin 4.13 Globulin 2.83 Albumin/Globulin Ratio 1.45 Orders Category Date Time Status ADMIT PATIENT INPATIENT .TO [facility] (MONITORED BED) ADMISSION 04/26/21 16:40 Ordered C-DIFF MONITORING (NURSING) BID CARE 04/26/21 16:41 Ordered TELEMETRY MONITORING TELE CARE 04/26/21 16:42 Ordered C. DIFFICILE Routine LAB 04/26/21 16:40 Uncollected CBC W/ AUTO DIFF Stat LAB 04/26/21 15:19 Completed COMPREHENSIVE METABOLIC PANEL Stat LAB 04/26/21 15:19 Completed LACTIC ACID Stat LAB 04/26/21 15:19 Completed RESPIRATORY PANEL 2.1 (PCR) Stat LAB 04/26/21 Ordered URINALYSIS C & S IF INDICATED Stat LAB 04/26/21 15:14 Uncollected Aspirin [Aspirin EC] MEDS 04/27/21 09:00 Ordered 81 mg PO DAILY Clonidine HCl [Catapres] MEDS 04/26/21 15:14 Discontinued 0.1 mg PO ONCE ONE Diazepam [Valium] MEDS 04/26/21 16:46 Ordered 2 mg PO Q8-12H PRN Lisinopril [Zestril] MEDS 04/26/21 17:00 Ordered 40 mg PO QDAY Metoprolol Succinate [Toprol Xl] MEDS 04/27/21 09:00 Ordered 50 mg PO DAILY Nitroglycerin [Nitrostat] MEDS 04/26/21 16:46 Ordered 0.4 mg SL Q5MIN X 3 DOSES PRN Ondansetron HCl/Pf [Zofran 4 mg/2 ml] MEDS 04/26/21 16:40 Once 4 mg IVP ONCE ONE SODIUM CHLORIDE 0.9% @ 100 MLS/HR(1,000ml) MEDS 04/26/21 16:40 Ordered Sodium Chloride 0.9% [Sodium Chloride] 1,000 ml IV 100 mls/hr Sodium Chloride 0.9% [Sodium Chloride] 1,000 ml MEDS 04/26/21 15:14 Discontinu ed IV BOLUS acetaminophen-codeine [Tylenol-Codeine #4] MEDS 04/26/21 16:46 Ordered 1 each PO BID PRN CT ABDOMEN/PELVIS WO CONTRAST Stat RADS 04/26/21 15:14 Completed Medications Generic Name Dose Route Start Last Admin Trade Name Freq PRN Reason Stop Dose Admin Sodium Chloride 1,000 mls @ 100 mls/hr 04/26/21 16:40 Sodium Chloride IV 04/27/21 02:39 .Q10H STA Discontinued Medications Generic Name Dose Route Start Last Admin Trade Name Freq PRN Reason Stop Dose Admin Clonidine 0.1 mg 04/26/21 15:14 Clonidine Hcl 0.1 Mg Tablet PO 04/26/21 15:15 ONCE ONE Sodium Chloride 1,000 mls @ 1,000 mls/hr 04/26/21 15:14 Sodium Chloride IV 04/26/21 16:13 BOLUS STA Ondansetron HCl 4 mg 04/26/21 16:40 Ondansetron Hcl/Pf 4 Mg/2 Ml Sdv IVP 04/26/21 16:41 ONCE ONE Vital Signs: Temp Pulse Resp BP Pulse Ox 04/26/21 15:04 98 F 77 18 183/121 H 95 Discharge Plan Discharge Patient Disposition: ADMITTED INPATIENT Discharge Problem: Diarrhea Prescriptions: No Action citalopram [Celexa] 40 MG tablet 40 mg PO DAILY RF: 0 metoprolol succinate [Toprol XL] 50 MG tablet extended release 24 hr 50 mg PO DAILY RF: 0 ezetimibe [Zetia] 10 mg tablet 12.8 mg PO DAILY RF: 0 acetaminophen-codeine [Tylenol-Codeine #4] 1 EACH tablet 1 ea PO BID PRN (Reason: Back pain) RF: 0 nitroglycerin [Nitrostat] 0.4 MG tablet, sublingual 0.4 mg sublingual Q5MIN X 3 DOSES PRN (Reason: Chest Pain) RF: 0 aspirin [Aspir-Low] 81 MG tablet,delayed release (DR/EC) 81 mg PO DAILY RF: 0 lisinopril 40 mg tablet 40 mg PO QDAY RF: 0 diazepam 2 mg tablet 2 mg PO Q8-12H PRN (Reason: muscle spasm) Qty: 50 RF: 1 ED Provider: LIZ ESPOSITO Condition: Stable Physician Progress Note: [treatment and disposition d/w Dr Espino]
[2021-04-26 15:28] LABS: BASOPHILS % (AUTO) 0.6 % (0.0-3.0); EOSINOPHILS # (AUTO) 0.2 K/ul (0.0-0.7); EOSINOPHILS % (AUTO) 3.2 % (0.0-7.0); HEMATOCRIT 42.2 % (37.0-47.0); HEMOGLOBIN 14.7 g/dl (12.0-16.0); IMMATURE GRANULOCYTE % (AUTO) 0.3 % (0.0-5.0); LYMPHOCYTES # (AUTO) 2.4 K/uL (0.60-3.4); LYMPHOCYTES % (AUTO) 38.7 (10.0-50.0); MEAN CORPUSCULAR HEMOGLOBIN 31.5 pg (27.0-31.0); MEAN CORPUSCULAR HGB CONC 34.8 (31.8-35.4); MEAN CORPUSCULAR VOLUME 90.6 fl (81.0-99.0); MONOCYTES # (AUTO) 0.5 K/uL (0.4-2.0); MONOCYTES % (AUTO) 8.3 (0-10); NEUTROPHILS # (AUTO) 3.1 K/ul (2.0-6.9); NEUTROPHILS % (AUTO) 48.9 % (42.2-75.2); PLATELET COUNT 167 10^3/uL (140-440); RDW COEFFICIENT OF VARIATION 12.5 % (11.6-14.8); RED BLOOD COUNT 4.66 10^6/ul (4.20-5.40); WHITE BLOOD COUNT 6.28 K/ul (4.6-10.2)
[2021-04-26 15:45] LABS: ALANINE AMINOTRANSFERASE 18.8 U/L (0-35); ALBUMIN 4.13 g/dL (3.5-5.0); ALKALINE PHOSPHATASE 65.9 U/L (53-141); ASPARTATE AMINO TRANSFERASE 28.2 U/L (14-36); BILIRUBIN,TOTAL 0.6 mg/dL (0.2-1.3); BLOOD UREA NITROGEN 17.6 mg/dL (7-17); CALCIUM 9.11 mg/dL (8.4-10.2); CARBON DIOXIDE 25.7 mmol/L (22-30.0); CHLORIDE 103.4 mmol/L (98-107); CREATININE 0.7 mg/dL (0.60-1.30); GLUCOSE 87.3 mg/dL (74-106); POTASSIUM 3.99 mmol/L (3.5-5.1); SODIUM 136.5 mmol/L (134.5-145); TOTAL PROTEIN 6.96 g/dL (6.3-8.2)
--- NOTE | 2021-04-26 15:56 | CT ---
EXAM: CT abdomen pelvis without contrast HISTORY: Diarrhea COMPARISON: 05/18/2020 TECHNIQUE: CT abdomen pelvis performed without intravenous contrast. Coronal and sagittal reformatt ed images obtained. FINDINGS: The lung bases clear. No free air. No acute abnormalities of the bones. Degenerative ch magnus in the spine. Heart normal in size. Evaluation organ parenchyma limited without contrast. Low density lesion in the right hepatic lobe is poorly visualized on noncontrast CT. Gallbladder unrema rkable. Pancreas unremarkable. Spleen unremarkable. Adrenals unremarkable. No hydronephrosis or n ephrolithiasis. No calculi visualized in normal course of the ureters. Small foci of air in the alma dder lumen. Aorta normal in caliber. Moderate to severe atherosclerosis. Small fat-containing christel umbilical hernia. Stomach unremarkable. No dilated loops small bowel. Appendix appears normal. Co hernandez unremarkable. No lymphadenopathy or ascites. IMPRESSION: 1. No bowel or urinary obstruction. Normal appendix. 2. Air in bladder lumen. This may be due to recent instrumentation and clinical correlation is terry mmended. Infection not excluded. 3. Indeterminate liver lesion, poorly visualized. Recommend correlation with MRI liver protocol as previously described. 4. Atherosclerosis. All CT scans are performed using dose optimization techniques as appropriate to the performed exam an d include at least one of the following: Automated exposure control, adjustment of the mA and/or kV according t o size, and the use of iterative reconstruction technique.
[2021-04-26] MEDS ORDERED: ZOFRAN 4 MG/2 ML IVP ONE (16:40)
[2021-04-26] MEDS ORDERED: NITROSTAT SL PRN (16:46)
[2021-04-26] MEDS ORDERED: ACETAMINOPHEN CODEINE PO PRN (16:46)
[2021-04-26] MEDS ORDERED: VALIUM PO PRN (16:46)
[2021-04-26 16:48] LABS: BORDETELLA PARAPERTUSSIS (PCR) NOT DETECTED (NOT DETECT); BORDETELLA PERTUSSIS (PCR) NOT DETECTED (NOT DETECT); CHLAMYDIA PNEUMONIAE (PCR) NOT DETECTED (NOT DETECT); CORONAVIRUS 229E (PCR) NOT DETECTED (NOT DETECT); CORONAVIRUS HKU1 (PCR) NOT DETECTED (NOT DETECT); CORONAVIRUS NL63 (PCR) NOT DETECTED (NOT DETECT); CORONAVIRUS OC43 (PCR) NOT DETECTED (NOT DETECT); HUMAN METAPNEUMOVIRUS (PCR) NOT DETECTED (NOT DETECT); HUMAN RHINOVIRUS/ENTEROV (PCR) NOT DETECTED (NOT DETECT); INFLUENZA B (PCR) NOT DETECTED (NOT DETECT); MYCOPLASMA PNEUMONIAE (PCR) NOT DETECTED (NOT DETECT); PARAINFLUENZA VIRUS 1 (PCR) NOT DETECTED (NOT DETECT); PARAINFLUENZA VIRUS 2 (PCR) NOT DETECTED (NOT DETECT); PARAINFLUENZA VIRUS 3 (PCR) NOT DETECTED (NOT DETECT); PARAINFLUENZA VIRUS 4 (PCR) NOT DETECTED (NOT DETECT); RESPIRATORY SYNCYTIAL V (PCR) NOT DETECTED (NOT DETECT); SARS_COV_2 (PCR) NOT DETECTED (NOT DETECT)
[2021-04-26] MEDS ORDERED: TYLENOL #3 TAB PO PRN ×3 (16:54→17:00)
[2021-04-26 17:34] LABS: ADENOVIRUS (PCR) NOT DETECTED (NOT DETECT)
[2021-04-26 20:52] VITALS: BMI 24.5
[2021-04-26] MEDS ORDERED: ATROPINE SULFATE PFS IVP PRN (22:49)
[2021-04-26] MEDS ORDERED: TYLENOL PO PRN (22:49)
[2021-04-26 23:22] LABS: CREATINE KINASE 50.3 U/L (30-135)
[2021-04-26 23:51] LABS: TROPONIN I < 0.012 ng/ml (0.0000-0.120)
[2021-04-27 05:27] LABS: BASOPHILS % (AUTO) 0.9 % (0.0-3.0); EOSINOPHILS # (AUTO) 0.2 K/ul (0.0-0.7); EOSINOPHILS % (AUTO) 4.2 % (0.0-7.0); HEMATOCRIT 40.1 % (37.0-47.0); HEMOGLOBIN 12.8 g/dl (12.0-16.0); IMMATURE GRANULOCYTE % (AUTO) 0.2 % (0.0-5.0); LYMPHOCYTES # (AUTO) 1.9 K/uL (0.60-3.4); LYMPHOCYTES % (AUTO) 41.2 (10.0-50.0); MEAN CORPUSCULAR HEMOGLOBIN 31.2 pg (27.0-31.0); MEAN CORPUSCULAR HGB CONC 31.9 (31.8-35.4); MEAN CORPUSCULAR VOLUME 97.8 fl (81.0-99.0); MONOCYTES # (AUTO) 0.4 K/uL (0.4-2.0); MONOCYTES % (AUTO) 7.7 (0-10); NEUTROPHILS # (AUTO) 2.1 K/ul (2.0-6.9); NEUTROPHILS % (AUTO) 45.8 % (42.2-75.2); PLATELET COUNT 137 10^3/uL (140-440); RDW COEFFICIENT OF VARIATION 12.5 % (11.6-14.8); WHITE BLOOD COUNT 4.52 K/ul (4.6-10.2)
[2021-04-27 06:08] LABS: ALANINE AMINOTRANSFERASE 16.6 U/L (0-35); ALBUMIN 3.4 g/dL (3.5-5.0); ALKALINE PHOSPHATASE 49.9 U/L (53-141); ASPARTATE AMINO TRANSFERASE 37.5 U/L (14-36); BILIRUBIN,TOTAL 0.77 mg/dL (0.2-1.3); BLOOD UREA NITROGEN 13.5 mg/dL (7-17); CALCIUM 8.23 mg/dL (8.4-10.2); CARBON DIOXIDE 22.3 mmol/L (22-30.0); CHLORIDE 105.5 mmol/L (98-107); CREATININE 0.66 mg/dL (0.60-1.30); GLUCOSE 98.4 mg/dL (74-106); POTASSIUM 3.72 mmol/L (3.5-5.1); SODIUM 133.8 mmol/L (134.5-145); TOTAL PROTEIN 5.82 g/dL (6.3-8.2)
[2021-04-27 06:13] LABS: CREATINE KINASE 57.5 U/L (30-135)
[2021-04-27 06:20] LABS: BILIRUBIN,URINE Negative (NEGATIVE); CLARITY,URINE Clear (CLEAR); COLOR,URINE Yellow (YELLOW); GLUCOSE, URINE (UA) Negative (NEGATIVE); KETONES,URINE Negative (NEGATIVE); LEUKOCYTE ESTERASE ,URINE 1+ (NEGATIVE); NITRITE,URINE Positive (NEGATIVE); PH,URINE 6.5 (5-9); PROTEIN,URINE Negative (NEGATIVE); URINE, BLOOD 2+ (NEGATIVE); UROBILINOGEN,URINE 0.2 (0.2)
[2021-04-27 06:27] LABS: TROPONIN I < 0.012 ng/ml (0.0000-0.120)
[2021-04-27 06:28] LABS: BACTERIA,URINE 3+ (NOT PRESENT)
[2021-04-27] MEDS: ASPIRIN EC PO SCH (09:56)
[2021-04-27] MEDS: CELEXA PO SCH (09:57)
[2021-04-27] MEDS: TOPROL XL PO SCH (09:57)
[2021-04-27] MEDS: ZESTRIL PO SCH (09:57)
--- NOTE | 2021-04-27 12:49 | PCM.PROG ---
Attending Provider: ATTENDING PROVIDER: Dr. BETSY ESPINO DATE OF SERVICE: 04/27/21 SUBJECTIVE: This 80 year old /WHITE F was hospitalized 04/26/21 with colitis and diarrhea for 6 days, liquid. The patient had severe hypertension with diastolic 120. REVIEW OF SYSTEMS: CONSTITUTIONAL: No night sweats. No fatigue, malaise, lethargy. No fever or chills. Feeling better. HEENT: Eyes: No visual changes. No eye pain. No eye discharge. ENT: No runny nose. No epistaxis. No sinus pain. No odynophagia. No congestion. RESPIRATORY: No cough, no congestion. No hemoptysis. No shortness of breath. CARDIOVASCULAR: No angina symptoms. No CHF symptoms. No atypical chest pain for CAD. No palpitations. No orthopnea.. GASTROINTESTINAL: No abdominal pain. No nausea or vomiting. No diarrhea or constipation. No hematemesis. No hematochezia. Appetite has improved. GENITOURINARY: No urgency. No frequency. No dysuria. No hematuria. No obstructive symptoms. No discharge. No pain. No significant abnormal bleeding. MUSCULOSKELETAL: No musculoskeletal pain; no joint swelling. NEUROLOGICAL: Awake, alert, oriented to time, place and person. No headache. No neck pain. No syncope. No seizures. No dizziness. PSYCHIATRIC: Not anxious. No depression. No suicidal thoughts. No homicidal t houghts. SKIN: No rash. No lesions. No wounds. ENDOCRINE: No unexplained weight loss. No weight gain. HEMATOLOGIC/LYMPHATIC: No anemia. No purpura. No petechiae. No prolonged or excessive bleeding. No palpable lymph nodes. PHYSICAL EXAMINATION: GENERAL: The patient is awake, alert and oriented, lying in bed in no distress. VITAL SIGNS: Temperature 97.5 F, Pulse 64, Respiratory Rate 18, BP 140/74, Pulse Ox 99% HEENT: Head normocephalic, atraumatic. Eyes: Extraocular muscles are intact. Pupils are equal, round and reactive to light and accommodation. Ears: No lesions. Nose appeared normal. Throat: No exudate or erythema. NECK: Supple. No JVD, no carotid bruit. No lymphadenopathy or thyromegaly. LUNGS: Clear to auscultation. Percussion note normal. Chest symmetrical. HEART: S1, S2, no S3. No murmurs. No cyanosis or clubbing. No ascites. Pulses: Dorsalis pedis and posterior tibial pulses +1 to +2 both sides. ABDOMEN: Soft. Non-tender. Bowel sounds active. No CVA tenderness. No mass felt. EXTREMITIES: No edema. Full range of motion of all extremities, equal. NEUROLOGIC: No focal deficit. Cranial nerves II through XII are grossly intact. No headache, no double vision or headache. SKIN: Warm and dry. Intact. Turgor-normal. LYMPHATIC: No palpable lymph nodes/no lymphedema. MUSCULOSKELETAL: Normal joints with no swelling. Muscle tone is normal. LAB REVIEW: 04/27/21 04:44 04/27/21 04:44 04/27/21 05:45: Total Creatine Kinase 57.5, Troponin I < 0.012 04/27/21 05:05: Urine Color Yellow, Urine Clarity Clear, Urine pH 6.5, Ur Specific [place] 1.010, Urine Protein Negative, Urine Glucose (UA) Negative, Urine Ketones Negative, Urine Blood 2+ H, Urine Nitrite Positive H, Urine Bilirubin Negative, Urine Urobilinogen 0.2, Ur Leukocyte Esterase 1+ H, Urine Microscopic RBC 2-5, Urine Microscopic WBC 5-10, Ur Squamous Epith Cells 2-5, Urine Bacteria 3+ 04/27/21 04:44: Sodium 133.8 L, Potassium 3.72, Chloride 105.5, Carbon Dioxide 22.3, Anion Gap 9.72, BUN 13.5, Creatinine 0.66, Estimated GFR (MDRD) 87.00, BUN/Creatinine Ratio 20.45, Glucose 98.4, Calcium 8.23 L, Total Bilirubin 0.77, AST 37.5 H, ALT 16.6, Alkaline Phosphatase 49.9 L, Total Protein 5.82 L, Albumin 3.40 L, Globulin 2.42, Albumin/Globulin Ratio 1.40 04/27/21 04:44: WBC 4.52 L, RBC 4.10 L, Hgb 12.8, Hct 40.1, MCV 97.8 D, MCH 31.2 H, MCHC 31.9, RDW Coeff of Tori 12.5, Plt Count 137 L, Immature Gran % (Auto) 0.2, Neut % (Auto) 45.8, Lymph % (Auto) 41.2, [place] % (Auto) 7.7, Eos % (Auto) 4.2, Baso % (Auto) 0.9, Neut # (Auto) 2.1, Lymph # (Auto) 1.9, [place] # (Auto) 0.4, Eos # (Auto) 0.2, Baso # (Auto) 0.0, Immature Gran # (Auto) 0.0 04/26/21 23:03: Total Creatine Kinase 50.3, Troponin I < 0.012 04/26/21 16:37: Adenovirus (PCR) Not detected, B. pertussis DNA (PCR) Not detected, B.parapertussis DNA PCR Not detected, C. pneumoniae DNA (PCR) Not detected, Coronavirus OC43 (PCR) Not detected, Coronavirus HKU1 (PCR) Not dete cted, Coronavirus 229E (PCR) Not detected, Coronavirus NL63 (PCR) Not detected, Human Metapneumovir PCR Not detected, Influenza Type A (PCR) Not detected, Influenza B (RT-PCR) Not detected, M. pneumoniae (PCR) Not detected, Parainfluenza 1 (PCR) Not detected, Parainfluenza 2 (PCR) Not detected, Para influenza 3 (PCR) Not detected, Parainfluenza 4 (PCR) Not detected, RSV (PCR) Not detected, Entero/Rhino (PCR) Not detected, SARS-CoV-2 (PCR) Not detected 04/26/21 15:19: Lactic Acid 0.90 04/26/21 15:19: Sodium 136.5, Potassium 3.99, Chloride 103.4, Carbon Dioxide 25.7, Anion Gap 11.39, BUN 17.6 H, Creatinine 0.70, Estimated GFR (MDRD) 81.00, BUN/Creatinine Ratio 25.14, Glucose 87.3, Calcium 9.11, Total Bilirubin 0.60, T 28.2, ALT 18.8, Alkaline Phosphatase 65.9, Total Protein 6.96, Albumin 4.13, Globulin 2.83, Albumin/Globulin Ratio 1.45 04/26/21 15:19: WBC 6.28, RBC 4.66, Hgb 14.7, Hct 42.2, MCV 90.6, MCH 31.5 H, MCHC 34.8, RDW Coeff of Tori 12.5, Plt Count 167, Immature Gran % (Auto) 0.3, Neut % (Auto) 48.9, Lymph % (Auto) 38.7, [place] % (Auto) 8.3, Eos % (Auto) 3.2, Baso % (Auto) 0.6, Neut # (Auto) 3.1, Lymph # (Auto) 2.4, [place] # (Auto) 0.5, Eos # (Auto) 0.2, Baso # (Auto) 0.0, Immature Gran # (Auto) 0.0 ASSESSMENT: Please see below. 1. Acute colitis/gastroenteritis seems resolved 2. Severe hypertension, resolved 3. CABG no symptoms of CHF or coronary insufficiency 4. Severe generalized degenerative joint disease 5. History of hypertension 6. Dyslipidemia PLAN: 1. Discontinue IV fluids 2. Start soft diet 3. Will monitor cardiovascular status. Plan and coordination of the patient's care discussed in the presence of [employer] Operator and nurse. CONDITION: Stable SCRIBED BY: SHIREEN LAMA [employer]ach[employer] Har[employer] Rigger scribed while in presence of service performed by Dr. BETSY ESPINO on 04/27/21 ([id number])
--- NOTE | 2021-04-27 13:10 | HP ---
DATE OF SERVICE: 04/26/2021 REASON FOR HOSPITALIZATION/HISTORY OF PRESENT ILLNESS: 80 year old white female was seen in the emergency room with diarrhea, colitis of nearly 5-7 times a day. She had very poor oral intake in the emergency room. The patient's blood pressure was noted to be 160/120. He has history of coronary bypass surgery. Her physical exam was practically unremarkable except for dry skin and signs of dehydration. The patient was hospitalized for treatment symptomatic for diarrhea and for better control of her blood pressure problem. Her COVID test was negative. 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 Left sciatica Osteoporosis History of Hypertension LVH on October 26 Echo was ejection fraction of 60% REVIEW OF SYSTEMS: CONSTITUTIONAL: No night sweats. No fatigue, malaise, lethargy. No fever or chills. HEENT: Eyes: No visual changes. No eye pain. No eye discharge. ENT: No runny nose. No epistaxis. No sinus pain. No sore throat. No odynophagia. No ear pain. No congestion. RESPIRATORY: No cough, no congestion. No hemoptysis. No shortness of breath. CARDIOVASCULAR: No angina symptoms. No CHF symptoms. No atypical chest pain for CAD. No palpitations. No PND. No orthopnea. GASTROINTESTINAL: No abdominal pain. No nausea or vomiting. No diarrhea or constipation. No hematemesis. No hematochezia. GENITOURINARY: No urgency. No frequency. No dysuria. No hematuria. No obstructive symptoms. No discharge. No pain. No significant abnormal bleeding. MUSCULOSKELETAL: No musculoskeletal pain. No joint swelling. No arthritis. NEUROLOGICAL: No headache. No neck pain. No syncope. No seizures. No dizziness. PSYCHIATRIC: Not anxious. No depression. No suicidal thoughts. No homicidal thoughts. SKIN: No rash. No lesions. No wounds. ENDOCRINE: No unexplained weight loss. No weight gain. HEMATOLOGIC/LYMPHATIC: No anemia. No purpura. No petechiae. No prolonged or excessive bleeding. No palpable lymph nodes. PERSONAL/FAMILY/SOCIAL HISTORY: The patient lives by herself. Nonsmoker. Single. Up and about and does all activity of daily living and more. MEDICATIONS: Celexa 40mg PO daily Toprol XL 50mg Po daily Tylenol with codeine 300-60mg Po BID PRN Nitrostat 0.4mg SUBLINGUAL Q 5 minute times three doses PRN Aspirin 81mg PO daily Lisinopril 40mg PO QDAY Ezetimibe 12.8mg Po daily Diazepam 2mg PO Q 8-12 hours PRN ALLERGIES: Prochlorperazine Sulfa PHYSICAL EXAMINATION: VITAL SIGNS: Temperature 98, pulse 70, blood pressure 183/121, respiratory rate 18 and oxygen saturation 95%. HEENT: Head normocephalic, atraumatic. Eyes: Extraocular muscles are intact. Pupils are equal, round and reactive to light and accommodation. Ears: No lesions. Nose appeared normal. Throat: No exudate or erythema. NECK: Supple. No JVD, no carotid bruit. No lymphadenopathy or thyromegaly. LUNGS: Clear to auscultation. Percussion note normal. Chest symmetrical. HEART: S1, S2, no S3. No murmur. No cyanosis or clubbing. No ascites. Pulses: Dorsalis pedis and posterior tibial pulses +1 to +2 bilaterally. ABDOMEN: Soft. Nontender. Bowel sounds active. No CVA tenderness. No mass felt. EXTREMITIES: No edema. Full range of motion of all extremities, equal. NEUROLOGIC: No focal deficit. Cranial nerves II through XII are grossly intact. No headache, no double vision or headache. SKIN: Not dry. Intact. Turgor - normal. LYMPHATIC: No palpable lymph nodes/no lymphedema. MUSCULOSKELETAL: Normal joints with no swelling. Muscle tone is normal. LABS: WBC 6.28, hgb 14.7, hct 42.2, plt count 167, sodium 136.5, potassium 3.99, chloride 103.4, bicarb 25.7, BUN 17.6, creatinine 0.70, glucose 87.3, AST 28.2, ALT 18.8. Urine 2+ blood, nitrite positive, 1+ leukocyte. PCR Negative. ASSESSMENT: 1. Acute colitis/gastroenteritis, seems to have resolved 2. Severe hypertension, resolved 3. History of CABG no symptoms of CHF or coronary insufficiency 4. Mild depression 5. Dyslipidemia 6. Chronic lung disease with long history of smoking 7. 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 8. Left sciatica 9. Osteoporosis 10.History of Hypertension 11.LVH on October 26.Echo was ejection fraction of 60% PLAN: 1. Admit 2. Routine telemetry orders 3. Clear liquid diet 4. CBC and CMP CONDITION: Stable TIME SPENT: More than 70 minutes. MTDD
[2021-04-27] MEDS: CIPRO PO SCH ×2 (14:53→20:21)
[2021-04-28 05:25] LABS: BASOPHILS % (AUTO) 0.6 % (0.0-3.0); EOSINOPHILS # (AUTO) 0.2 K/ul (0.0-0.7); EOSINOPHILS % (AUTO) 4.3 % (0.0-7.0); HEMATOCRIT 38.5 % (37.0-47.0); HEMOGLOBIN 13.1 g/dl (12.0-16.0); IMMATURE GRANULOCYTE % (AUTO) 0.2 % (0.0-5.0); LYMPHOCYTES # (AUTO) 2.4 K/uL (0.60-3.4); LYMPHOCYTES % (AUTO) 46.3 (10.0-50.0); MEAN CORPUSCULAR HEMOGLOBIN 31.3 pg (27.0-31.0); MEAN CORPUSCULAR VOLUME 91.9 fl (81.0-99.0); MONOCYTES # (AUTO) 0.4 K/uL (0.4-2.0); MONOCYTES % (AUTO) 7.3 (0-10); NEUTROPHILS # (AUTO) 2.1 K/ul (2.0-6.9); NEUTROPHILS % (AUTO) 41.3 % (42.2-75.2); PLATELET COUNT 142 10^3/uL (140-440); RDW COEFFICIENT OF VARIATION 12.4 % (11.6-14.8); RED BLOOD COUNT 4.19 10^6/ul (4.20-5.40)
[2021-04-28 05:42] LABS: ALANINE AMINOTRANSFERASE 16.9 U/L (0-35); ALBUMIN 3.52 g/dL (3.5-5.0); ALKALINE PHOSPHATASE 51.1 U/L (53-141); ASPARTATE AMINO TRANSFERASE 25.5 U/L (14-36); BILIRUBIN,TOTAL 0.52 mg/dL (0.2-1.3); BLOOD UREA NITROGEN 10.1 mg/dL (7-17); CALCIUM 8.68 mg/dL (8.4-10.2); CARBON DIOXIDE 26.4 mmol/L (22-30.0); CHLORIDE 106.1 mmol/L (98-107); CREATININE 0.74 mg/dL (0.60-1.30); GLUCOSE 92.9 mg/dL (74-106); POTASSIUM 3.93 mmol/L (3.5-5.1); TOTAL PROTEIN 5.9 g/dL (6.3-8.2)
[2021-04-28 05:50] VITALS: BP 134/67; TEMP 98.3
[2021-04-28] MEDS: CIPRO PO SCH (05:53)
[2021-04-28] MEDS: TOPROL XL PO SCH (09:26)
[2021-04-28] MEDS: ASPIRIN EC PO SCH (09:26)
[2021-04-28] MEDS: CELEXA PO SCH (09:27)
[2021-04-28] MEDS: ZESTRIL PO SCH (09:27)
--- NOTE | 2021-04-30 11:41 | PN ---
DATE OF SERVICE: 04/26/2021 ADMIT NOTE SUBJECTIVE: 80 year old white female was seen in the emergency room with diarrhea, colitis of nearly 5-7 times a day. She had very poor oral intake in the emergency room. The patient's blood pressure was noted to be 160/120. He has history of coronary bypass surgery. Her physical exam was practically unremarkable except for dry skin and signs of dehydration. The patient was hospitalized for treatment symptomatic for diarrhea and for better control of her blood pressure problem. Her COVID test was negative. TIME SPENT: More than 30 minutes. Plan and coordination of the patient's care discussed in the presence of nurse. DARLENE
--- NOTE | 2021-04-30 14:38 | PN ---
DATE OF SERVICE: 04/28/2021 SUBJECTIVE: 80 year old white female hospitalized with severe diarrhea of 5-6 days during with dehydration. The patient also had severe hypertension along with it with diastolic blood pressure 120. Her stool workup was negative for any particular pathogen. The patient has been IV fluids and she was restarted on all antihypertensive medications. The blood pressure is under control. Diarrhea has subsided. She had formed stool. Initial she had nausea. REVIEW OF SYSTEMS: CONSTITUTIONAL: No night sweats. No fatigue, malaise, lethargy. No fever or chills. HEENT: Eyes: No visual changes. No eye pain. No eye discharge. ENT: No runny nose. No epistaxis. No sinus pain. No sore throat. No odynophagia. No congestion. RESPIRATORY: No cough, no congestion. No hemoptysis. No shortness of breath. CARDIOVASCULAR: No angina symptoms. No CHF symptoms. No atypical chest pain for CAD. No palpitations. No PND. No orthopnea. GASTROINTESTINAL: No abdominal pain. No nausea or vomiting. No diarrhea or constipation. No hematemesis. No hematochezia. GENITOURINARY: No urgency. No frequency. No dysuria. No hematuria. No obstructive symptoms. No discharge. No pain. No significant abnormal bleeding. MUSCULOSKELETAL: No musculoskeletal pain; no joint swelling. NEUROLOGICAL: No headache. No neck pain. No syncope. No seizures. No dizziness. PSYCHIATRIC: Not anxious. No depression. No suicidal thoughts. No homicidal thoughts. SKIN: No rash. No lesions. No wounds. ENDOCRINE: No unexplained weight loss. No weight gain. HEMATOLOGIC/LYMPHATIC: No anemia. No purpura. No petechiae. No prolonged or excessive bleeding. No palpable lymph nodes. PHYSICAL EXAMINATION: VITAL SIGNS: Temperature 98, pulse 57, respiratory rate 16, blood pressure 134/67 and pulse ox 97%. HEENT: Head normocephalic, atraumatic. Eyes: Extraocular muscles are intact. Pupils are equal, round and reactive to light and accommodation. Ears: No lesions. Nose appeared normal. Throat: No exudate or erythema. NECK: Supple. No JVD, no carotid bruit. No lymphadenopathy or thyromegaly. LUNGS: Decreased breath sounds but clear to auscultation. Percussion note normal. Chest symmetrical. HEART: S1, S2, no S3. No murmurs. No cyanosis or clubbing. No ascites. Pulses: Dorsalis pedis and posterior tibial pulses +1 to +2 bilaterally. ABDOMEN: Soft. Nontender. Bowel sounds active. No CVA tenderness. No mass felt. EXTREMITIES: No edema. Full range of motion of all extremities, equal. NEUROLOGIC: No focal deficit. Cranial nerves II through XII are grossly intact. No headache. No double vision. SKIN: Not dry. Intact. Turgor - better LYMPHATIC: No palpable lymph nodes/no lymphedema. MUSCULOSKELETAL: Normal joints with no swelling. Muscle tone is normal. LABS: hgb 13, hct 38, WBC 5,000 normal differential, creatinine 0.7, BUN 10, potassium 3.9. ASSESSMENT: 1. Acute gastroenteritis seems to have resolved 2. Severe hypertension, under control PLAN: 1. Discharge the patient home 2. The patient is going to be discharged home on same medication 3. Diet instructions to avoid milk and milk products for next two days 4. See me back in 5-7 days. TIME SPENT: More than 30 minutes. ADDENDUM: The patient had UTI she was being treated as an outpatient before her admission. Urine showed no evidence of urinary tract infection which seems to be asymptomatic but the patient is going to be treated with Cipro 500mg twice a day for 5 days after discharge. The patient was on Cipro for two days in the hospital. The patient doesn't have any symptoms but she says that her urine has cleared up. Plan and coordination of the patient's care discussed in the presence of nurse. DARLENE
--- NOTE | 2021-05-01 11:40 | DS ---
DATE OF SERVICE: 04/28/21 FINAL DIAGNOSIS: 1. ACUTE GASTROENTERITIS 2. SEVERE HYPERTENSION 3. CORONARY ARTERY BYPASS SURGERY 4. MILD DEPRESSION 5. DYSLIPIDEMIA 6. CHRONIC LUNG DISEASE WITH LONG HISTORY OF SMOKING 7. SQUAMOUS CELL ON THE LEFT NOSE AND BASAL CELL ON THE RIGHT NOSE. 8. LEFT SCIATICA 9. OSTEOPOROSIS 10. HISTORY OF HYPERTENSION 11. LVH ON OCTOBER 26 12. ECHOCARDIOGRAM WITH EJECTION FRACTION OF 60% DISCHARGE INSTRUCTIONS: 1. Discharge home today. 2. Followup: An appointment is scheduled for May 07, 2021 at 9:[address] Euceda/Yolis Mackenzie APRN/Jd Chang APRN (hospital followup). MEDICATIONS AT DISCHARGE: Celexa Metoprolol Tylenol with Codeine Nitroglycerin Aspirin Zetia Lisinopril Diazepam NEW PRESCRIPTIONS: Ciprofloxacin 500 mg p.o. b.i.d. for five days DIET INSTRUCTIONS: As tolerated. ACTIVITY: As tolerated. SMOKING: Never smoker DISEASE SPECIFIC EDUCATION: Diagnosis Medications Followup Diet HOSPITAL COURSE: 80-year-old white female was hospitalized with acute gastroenteritis, mostly enteritis with diarrhea of 5 to 7 days duration. The patient also had severe hypertension with diastolic blood pressure of 120. She was given Clonidine in the emergency room. Later on, she was resumed on all of her medications, very likely the patient had not taken her medications while she was sick. The patient was treated with IV fluids. Her urine was abnormal so she was put on Cipro. The patient, at time of discharge, was feeling a lot better. She had two formed stools. Her appetite had improved. She did not have chest pain. No symptoms of CHF or coronary insufficiency noted. The patient was restarted on all the medication as before. Advised to avoid milk and milk products for 2 to 3 days. Condition at time of discharge stable. Discharge Labs: Hemoglobin 13, hematocrit 30, WBC 5,100, normal differential. Creatinine 0.7, BUN 10, potassium 3.9. TIME SPENT: More than 60 minutes. MTDD
--- NOTE | 2021-05-01 11:42 | PN ---
BILLING 04/26/21 ADMISSION DAY LEVEL 5 04/27/21 INTERMEDIATE 04/28/21 FINAL DAY - DISCHARGE DARLENE
== END 2021-04-28 14:57 | disposition home or self-care (01) | DRG 392 ==
LOC: ED 15:04 → MEDSURG A 18:22
PROVIDERS: ADMIT Internal Medicine; ATTEND Internal Medicine
DX: E78.5 Hyperlipidemia, unspecified; Z20.822 Contact with and (suspected) exposure to COVID-19; I10 Essential (primary) hypertension; M81.0 Age-related osteoporosis without current pathological fracture; F32.9 Major depressive disorder, single episode, unspecified; R10.9 Unspecified abdominal pain; M54.42 Lumbago with sciatica, left side; K52.9 Noninfective gastroenteritis and colitis, unspecified; M19.90 Unspecified osteoarthritis, unspecified site; N39.0 Urinary tract infection, site not specified; E86.0 Dehydration; R19.7 Diarrhea, unspecified; R53.81 Other malaise